=== PATIENT | female | born 1950 ===

== ENCOUNTER 2017-11-04 11:42 | Inpatient (IN) | payer OTHER ==
[~2017-11-04] VITALS: Ht 165.1 cm; Wt 98.0 kg
[~2017-11-04 11:42] MED LIST: COZAAR100 MG; HYZAAR 100-251 EACH PO; LOSARTAN-HCTZ1 EAC1; OMEPRAZOLE20 MG; SINGULAIR10 MG PO; SINGULAIR5 MG; TOBREX5 ML OP; TOPROL XL100 M1; TOPROL XL100 M1 PO
[2017-11-07] MEDS ORDERED: BACID CAPLET1 EACH PO (11:21)
[2017-11-07] MEDS ORDERED: FLAGYL500MG PO (11:21)
[2017-11-07] MEDS ORDERED: LOSARTAN-HCTZ1 EAC1 PO (11:21)
[2017-11-07] MEDS ORDERED: OMEPRAZOLE20 MG PO (11:21)
[2017-11-07] MEDS ORDERED: TOPROL XL100 M1 PO (11:21)
[2017-11-07] MEDS ORDERED: SINGULAIR10 MG PO (11:21)
[2017-11-07] MEDS ORDERED: CIPRO500 MG PO (11:21)
== END 2017-11-07 12:54 | disposition home or self-care (01) | DRG 392 ==
LOC: ER 11:42 → MEDI 11-05 01:29
DX: K57.32 Diverticulitis of large intestine without perforation or abscess without bleeding (principal)

== ENCOUNTER 2018-01-08 11:17 | Emergency (ER) | payer OTHER ==
[~2018-01-08] VITALS: Ht 165.1 cm; Wt 97.5 kg
[~2018-01-08 11:17] MED LIST changes: +BACID CAPLET1 EACH PO; +CIPRO500 MG PO; +FLAGYL500MG PO; +LOSARTAN-HCTZ1 EAC1 PO; +OMEPRAZOLE20 MG PO
== END 2018-01-08 17:13 | disposition home or self-care (01) ==
LOC: ER 11:17
DX: M79.661 Pain in right lower leg (principal)

== ENCOUNTER → 2018-11-13 | Emergency (ER) | payer OTHER ==
[~2018-11-13] VITALS: Ht 165.1 cm; Wt 99.8 kg
== END | disposition home or self-care (01) ==
LOC: ER 12:44
DX: J20.8 Acute bronchitis due to other specified organisms (principal)

== ENCOUNTER 2018-12-05 10:33 | Outpatient (CLI) | payer OTHER | END 2018-12-05 17:00 | disposition home or self-care (01) | LOC: TOM 10:33 | DX: R05 Cough (principal); J20.8 Acute bronchitis due to other specified organisms ==

== ENCOUNTER 2019-02-03 09:26 | Outpatient (CLI) | payer OTHER | END 2019-02-03 09:35 | disposition home or self-care (01) | LOC: TOM 09:26 | DX: R51 Headache (principal) ==

== ENCOUNTER → 2019-04-07 | Outpatient (CLI) | payer OTHER | END | disposition home or self-care (01) | LOC: NUCLEAR 11:00 | DX: I70.211 Atherosclerosis of native arteries of extremities with intermittent claudication, right leg (principal); I70.212 Atherosclerosis of native arteries of extremities with intermittent claudication, left leg ==

== ENCOUNTER → 2019-04-10 | Outpatient (CLI) | payer OTHER | END | disposition home or self-care (01) | LOC: NUCLEAR 12:00 | DX: I87.2 Venous insufficiency (chronic) (peripheral) (principal) ==